=== PATIENT | male | born 1960 | race Caucasian/White ===

== ENCOUNTER 2019-03-09 12:55 | Inpatient (IN) | payer OTHER ==
[~2019-03-09] VITALS: Ht 195.6 cm; Wt 85.6 kg
[2019-03-09] MEDS ORDERED: OXYMETAZOLINE NASAL SPRAY 0.05%, 15ML NAS ONE (13:30)
[2019-03-09] MEDS ORDERED: TRANEXAMIC ACID 100 MG/ML, 10ML TP ONE (13:30)
[2019-03-09] MEDS ORDERED: PLEASE ENTER ALLERGIES MC SCH (14:00)
[2019-03-09 14:02] LABS: BASOPHILS # (AUTO) 0.02 x10^3/uL (0-0.1); BASOPHILS % (AUTO) 0 % (0-1); EOSINOPHILS # (AUTO) 0.01 x10^3/uL (0-0.4); EOSINOPHILS % (AUTO) 0 % (1-7); LYMPHOCYTES % (AUTO) 22 % (22-44); MD NO; MEAN CORPUSCULAR HEMOGLOBIN 31.7 pg (27.5-34.5); MEAN CORPUSCULAR HGB CONC 34.5 g/dL (33.2-36.2); MEAN PLATELET VOLUME 7.8 fL (7.4-10.4); MONOCYTES # (AUTO) 0.39 x10^3/uL (0.2-0.8); MONOCYTES % (AUTO) 5 % (2-9); NEUTROPHILS # (AUTO) 6.14 x10^3/uL (1.8-6.8); NEUTROPHILS % (AUTO) 73 % (42-75); PLATELET COUNT 275 x10^3/uL (130-400); RED BLOOD COUNT 3.51 x10^6/uL (4.38-5.82)
[2019-03-09 14:11] LABS: ALANINE AMINOTRANSFERASE 14 U/L (12-78); ALBUMIN 3.1 g/dL (3.4-5.0); ANION GAP 9 mmol/L (5-15); CHLORIDE 99 mmol/L (98-107)
[2019-03-09 14:16] LABS: ALKALINE PHOSPHATASE 70 U/L (45-117); BILIRUBIN,TOTAL 0.5 mg/dL (0.2-1.0); CREATININE 0.54 mg/dL (0.7-1.3); TOTAL PROTEIN 6.7 g/dL (6.4-8.2)
[2019-03-09] MEDS ORDERED: OXYMETAZOLINE NASAL SPRAY 0.05%,30ML ONE (14:53)
[2019-03-09] MEDS ORDERED: TRANEXAMIC ACID 100 MG/ML, 10ML ONE (14:54)
[2019-03-09] MEDS: QUETIAPINE 25MG TABLET PO SCH ×2 (15:00→21:23)
[2019-03-09] MEDS ORDERED: SODIUM CHLORIDE FLUSH 10ML SYR IVF PRN (15:00)
--- NOTE | 2019-03-09 15:15 | NUR ---
REPORT RECIEVED FROM TOMY BARTON. TO ADMINISTER MEDICATIONS PER HER INSTRUCTIONS. MD NOTIFIED MEDICATIONS AT BEDSIDE.
[2019-03-09] MEDS ORDERED: ONDANSETRON 2MG/ML, 2ML IVPush PRN (16:30)
[2019-03-09] MEDS ORDERED: TEMAZEPAM 15 MG CAPSULE PO PRN (16:30)
[2019-03-09] MEDS ORDERED: OXYcodone IR 5MG TABLET PO PRN (16:30)
[2019-03-09] MEDS ORDERED: ENOXAPARIN 40 MG/0.4 ML SQ SCH (16:30)
[2019-03-09] MEDS ORDERED: GABAPENTIN 300 MG CAPSULE PO PRN (16:30)
[2019-03-09] MEDS ORDERED: hydrALAzine 20 MG/ML, 1ML IVPush PRN (16:30)
[2019-03-09] MEDS: INSULIN LISPRO 100 UNITS/ML, PEN SQ-INSULIN SCH ×2 (16:30→21:00)
[2019-03-09] MEDS ORDERED: ACETAMINOPHEN 325 MG TABLET PO PRN (16:30)
[2019-03-09 18:45] VITALS: BP 135/87
[2019-03-09] MEDS ORDERED: MIRTAZAPINE 15 MG TABLET PO SCH (21:00)
[2019-03-09] MEDS ORDERED: QUETIAPINE 25MG TABLET PO SCH (21:00)
[2019-03-09] MEDS: MIRTAZAPINE 15 MG TABLET PO SCH (21:23)
[2019-03-10 01:32] VITALS: BP 110/71
[2019-03-10 02:26] LABS: MICROSCOPIC NOT IND
[2019-03-10 02:29] LABS: CULTURE INDICATED? NO
[2019-03-10 05:35] LABS: BASOPHILS # (AUTO) 0.03 x10^3/uL (0-0.1); BASOPHILS % (AUTO) 0 % (0-1); EOSINOPHILS # (AUTO) 0.11 x10^3/uL (0-0.4); EOSINOPHILS % (AUTO) 2 % (1-7); LYMPHOCYTES # (AUTO) 2.61 x10^3/uL (1-3.4); LYMPHOCYTES % (AUTO) 36 % (22-44); MD NO; MEAN CORPUSCULAR HEMOGLOBIN 30.9 pg (27.5-34.5); MEAN CORPUSCULAR HGB CONC 32.9 g/dL (33.2-36.2); MEAN CORPUSCULAR VOLUME 93.9 fL (81-97); MEAN PLATELET VOLUME 7.9 fL (7.4-10.4); MONOCYTES # (AUTO) 0.45 x10^3/uL (0.2-0.8); MONOCYTES % (AUTO) 6 % (2-9); NEUTROPHILS # (AUTO) 4.07 x10^3/uL (1.8-6.8); NEUTROPHILS % (AUTO) 56 % (42-75); PLATELET COUNT 243 x10^3/uL (130-400); RED BLOOD COUNT 3.21 x10^6/uL (4.38-5.82); RED CELL DISTRIBUTION WIDTH 15.8 % (9.4-14.8)
[2019-03-10 05:48] LABS: ALBUMIN 2.9 g/dL (3.4-5.0); ANION GAP 6 mmol/L (5-15); CALCIUM 8.7 mg/dL (8.5-10.1); CHLORIDE 101 mmol/L (98-107)
[2019-03-10 05:53] LABS: ALANINE AMINOTRANSFERASE 14 U/L (12-78); ALKALINE PHOSPHATASE 66 U/L (45-117); BILIRUBIN,TOTAL 0.5 mg/dL (0.2-1.0); CREATININE 0.39 mg/dL (0.7-1.3); TOTAL PROTEIN 6.1 g/dL (6.4-8.2)
[2019-03-10] MEDS: INSULIN LISPRO 100 UNITS/ML, PEN SQ-INSULIN SCH ×4 (07:00→21:00)
[2019-03-10 08:06] VITALS: BP 127/75
[2019-03-10] MEDS: QUETIAPINE 25MG TABLET PO SCH ×2 (08:10→21:55)
[2019-03-10] MEDS: GLIMEPIRIDE 1 MG TABLET PO SCH (08:10)
[2019-03-10] MEDS: METOPROLOL TARTRATE 25 MG TABLET PO SCH ×2 (09:50→18:02)
[2019-03-10] MEDS: POTASSIUM CHLORIDE 20 MEQ TAB.ER.PRT PO SCH ×2 (09:50→11:37)
[2019-03-10] MEDS ORDERED: RISP1TAB45 PO (13:55)
[2019-03-10] MEDS ORDERED: GABA100C PO (13:58)
[2019-03-10] MEDS ORDERED: GLIM4TAB2 PO (13:59)
[2019-03-10] MEDS ORDERED: METF500T27 PO (14:02)
[2019-03-10] MEDS ORDERED: PIOG15TA66 PO (14:03)
[2019-03-10] MEDS ORDERED: ROSU40TA PO (14:04)
[2019-03-10] MEDS ORDERED: SITA100T PO (14:05)
[2019-03-10] MEDS ORDERED: ASPI-515 PO (14:06)
[2019-03-10] MEDS ORDERED: VALP250C59 PO ×2 (14:08→14:26)
[2019-03-10] MEDS ORDERED: AMLO-150 PO (14:09)
[2019-03-10] MEDS ORDERED: GLIP5TAB22 PO (14:17)
[2019-03-10] MEDS ORDERED: OXYM15SP8 NAS (14:19)
[2019-03-10] MEDS ORDERED: MULT-108 PO (14:20)
[2019-03-10] MEDS ORDERED: LORA10TA62 PO (14:21)
[2019-03-10 14:39] VITALS: BP 117/69
[2019-03-10 19:44] VITALS: BP 115/64
[2019-03-10] MEDS: MIRTAZAPINE 15 MG TABLET PO SCH (21:54)
[2019-03-11 01:02] VITALS: BP 135/80
[2019-03-11] MEDS ORDERED: MAGNESIUM SULFATE PMX 4GM/100M 100 ML IV ONE (05:00)
[2019-03-11 05:10] LABS: ANION GAP 6 mmol/L (5-15); CALCIUM 8.6 mg/dL (8.5-10.1); CHLORIDE 99 mmol/L (98-107); CREATININE 0.35 mg/dL (0.7-1.3)
[2019-03-11] MEDS: METOPROLOL TARTRATE 25 MG TABLET PO SCH ×2 (05:33→17:42)
[2019-03-11] MEDS: INSULIN LISPRO 100 UNITS/ML, PEN SQ-INSULIN SCH ×4 (07:00→20:56)
[2019-03-11 07:01] VITALS: BP 136/74
[2019-03-11] MEDS: GLIMEPIRIDE 1 MG TABLET PO SCH (08:40)
[2019-03-11] MEDS: QUETIAPINE 25MG TABLET PO SCH ×2 (08:40→20:59)
[2019-03-11 13:33] VITALS: BP 105/58
[2019-03-11 20:25] VITALS: BP 146/80
[2019-03-11] MEDS: MIRTAZAPINE 15 MG TABLET PO SCH (20:59)
[2019-03-12 03:10] VITALS: BP 128/73
[2019-03-12] MEDS: METOPROLOL TARTRATE 25 MG TABLET PO SCH ×2 (06:01→18:32)
[2019-03-12 06:05] LABS: ANION GAP 5 mmol/L (5-15); CALCIUM 8.3 mg/dL (8.5-10.1); CHLORIDE 103 mmol/L (98-107)
[2019-03-12 06:06] LABS: CREATININE 0.55 mg/dL (0.7-1.3)
[2019-03-12] MEDS: INSULIN LISPRO 100 UNITS/ML, PEN SQ-INSULIN SCH ×4 (07:00→21:14)
[2019-03-12 08:08] VITALS: BP 120/81
[2019-03-12] MEDS: GLIMEPIRIDE 1 MG TABLET PO SCH (08:12)
[2019-03-12] MEDS: QUETIAPINE 25MG TABLET PO SCH ×2 (08:13→21:13)
[2019-03-12] MEDS ORDERED: MIRT-34 PO (09:09)
[2019-03-12] MEDS ORDERED: GLIM1TAB PO (09:09)
[2019-03-12] MEDS ORDERED: METO25TA35 PO (09:09)
[2019-03-12] MEDS ORDERED: QUET25TA7 PO (09:09)
[2019-03-12 14:45] VITALS: BP 120/75
[2019-03-12 19:15] VITALS: BP 124/72
[2019-03-12] MEDS: MIRTAZAPINE 15 MG TABLET PO SCH (21:13)
[2019-03-12 22:56] LABS: OCCULT BLOOD POSITIVE (NEGATIVE)
[2019-03-13 01:13] VITALS: BP 142/86
[2019-03-13 05:46] LABS: BASOPHILS # (AUTO) 0.03 x10^3/uL (0-0.1); BASOPHILS % (AUTO) 1 % (0-1); EOSINOPHILS # (AUTO) 0.17 x10^3/uL (0-0.4); EOSINOPHILS % (AUTO) 2 % (1-7); LYMPHOCYTES # (AUTO) 2.65 x10^3/uL (1-3.4); LYMPHOCYTES % (AUTO) 36 % (22-44); MD NO; MEAN CORPUSCULAR HEMOGLOBIN 31.1 pg (27.5-34.5); MEAN CORPUSCULAR HGB CONC 33.1 g/dL (33.2-36.2); MEAN CORPUSCULAR VOLUME 93.8 fL (81-97); MEAN PLATELET VOLUME 7.8 fL (7.4-10.4); MONOCYTES # (AUTO) 0.37 x10^3/uL (0.2-0.8); MONOCYTES % (AUTO) 5 % (2-9); NEUTROPHILS % (AUTO) 56 % (42-75); PLATELET COUNT 326 x10^3/uL (130-400); RED BLOOD COUNT 3.68 x10^6/uL (4.38-5.82); RED CELL DISTRIBUTION WIDTH 16.2 % (9.4-14.8)
[2019-03-13 05:54] VITALS: BP 133/85
[2019-03-13] MEDS: METOPROLOL TARTRATE 25 MG TABLET PO SCH ×2 (05:56→18:17)
[2019-03-13] MEDS: INSULIN LISPRO 100 UNITS/ML, PEN SQ-INSULIN SCH ×4 (07:00→20:40)
[2019-03-13 07:53] LABS: CLOSTRIDIUM DIFFICILE ANTIGEN NEGATIVE; CLOSTRIDIUM DIFFICILE TOXIN NEGATIVE (Negative)
[2019-03-13 08:00] VITALS: BP 128/80
[2019-03-13] MEDS: GLIMEPIRIDE 1 MG TABLET PO SCH (08:31)
[2019-03-13] MEDS: QUETIAPINE 25MG TABLET PO SCH ×2 (08:32→20:39)
[2019-03-13 15:26] VITALS: BP 118/76
[2019-03-13 19:17] VITALS: BP 129/78
[2019-03-13] MEDS: MIRTAZAPINE 15 MG TABLET PO SCH (20:39)
[2019-03-14 02:50] VITALS: BP 131/87
[2019-03-14 05:20] VITALS: BP 116/77
[2019-03-14] MEDS: METOPROLOL TARTRATE 25 MG TABLET PO SCH (05:23)
[2019-03-14] MEDS: INSULIN LISPRO 100 UNITS/ML, PEN SQ-INSULIN SCH ×4 (07:00→20:33)
[2019-03-14] MEDS: GLIMEPIRIDE 1 MG TABLET PO SCH (07:41)
[2019-03-14 07:57] VITALS: BP 106/67
[2019-03-14] MEDS: QUETIAPINE 25MG TABLET PO SCH ×2 (09:00→20:33)
[2019-03-14] MEDS ORDERED: SODIUM CHLORIDE 0.9% 1,000ML IVBOLUS ONE (12:30)
[2019-03-14 12:45] VITALS: BP 123/75
[2019-03-14 15:30] VITALS: BP 115/72
[2019-03-14] MEDS: SODIUM CHLORIDE 0.9% 1,000 ML IV SCH (16:04)
[2019-03-14] MEDS ORDERED: MAGNESIUM SULFATE 4 GM in SODIUM CHLORIDE 0.9% 100 ML IV ONE (19:00)
[2019-03-14] MEDS ORDERED: POTASSIUM PHOSPHATE 44 MEQ in SODIUM CHLORIDE 0.9% 500 ML IV ONE (19:00)
[2019-03-14] MEDS ORDERED: MAGNESIUM SULFATE PMX 4GM/100M 100 ML IV ONE (19:01)
[2019-03-14 19:32] VITALS: BP 115/66
[2019-03-14] MEDS: MIRTAZAPINE 15 MG TABLET PO SCH (20:32)
[2019-03-15 00:10] LABS: MICROSCOPIC NOT IND
[2019-03-15 00:11] VITALS: BP 131/80
[2019-03-15 00:18] LABS: CULTURE INDICATED? NO
[2019-03-15] MEDS: SODIUM CHLORIDE 0.9% 1,000 ML IV SCH ×2 (04:53→13:48)
[2019-03-15 05:57] LABS: BASOPHILS # (AUTO) 0.01 x10^3/uL (0-0.1); BASOPHILS % (AUTO) 0 % (0-1); EOSINOPHILS % (AUTO) 0 % (1-7); LYMPHOCYTES # (AUTO) 0.86 x10^3/uL (1-3.4); LYMPHOCYTES % (AUTO) 14 % (22-44); MD NO; MEAN CORPUSCULAR HEMOGLOBIN 30.5 pg (27.5-34.5); MEAN CORPUSCULAR VOLUME 92.6 fL (81-97); MONOCYTES # (AUTO) 0.21 x10^3/uL (0.2-0.8); MONOCYTES % (AUTO) 4 % (2-9); NEUTROPHILS # (AUTO) 5.02 x10^3/uL (1.8-6.8); NEUTROPHILS % (AUTO) 82 % (42-75); PLATELET COUNT 314 x10^3/uL (130-400); RED CELL DISTRIBUTION WIDTH 16.3 % (9.4-14.8)
[2019-03-15 06:05] LABS: ANION GAP 8 mmol/L (5-15); CALCIUM 8.4 mg/dL (8.5-10.1); CHLORIDE 100 mmol/L (98-107); CREATININE 0.42 mg/dL (0.7-1.3)
[2019-03-15] MEDS: INSULIN LISPRO 100 UNITS/ML, PEN SQ-INSULIN SCH ×4 (07:00→21:10)
[2019-03-15 07:36] VITALS: BP 135/78
[2019-03-15] MEDS: GLIMEPIRIDE 1 MG TABLET PO SCH (08:12)
[2019-03-15] MEDS: QUETIAPINE 25MG TABLET PO SCH ×2 (08:13→20:59)
[2019-03-15 13:42] VITALS: BP 132/74
[2019-03-15] MEDS ORDERED: VANCOMYCIN PMX 1GM/200ML 200 ML IV ONE (15:30)
[2019-03-15] MEDS ORDERED: VANCOMYCIN PER PHARMACY MC PRN (15:30)
[2019-03-15 15:58] LABS: HCT (SEDRATE) 31.8 % (39.2-51.8)
[2019-03-15] MEDS ORDERED: PHARMACOKINETIC MONITORING MC PRN (16:00)
[2019-03-15] MEDS: VANCOMYCIN 1,700 MG in SODIUM CHLORIDE 0.9% 250 ML IV SCH (16:17)
[2019-03-15 20:07] VITALS: BP 139/72
[2019-03-15] MEDS: MIRTAZAPINE 15 MG TABLET PO SCH (20:59)
[2019-03-16 00:26] VITALS: BP 153/92
[2019-03-16] MEDS: SODIUM CHLORIDE 0.9% 1,000 ML IV SCH ×3 (02:33→18:01)
[2019-03-16] MEDS: VANCOMYCIN 1,700 MG in SODIUM CHLORIDE 0.9% 250 ML IV SCH ×3 (04:37→17:14)
[2019-03-16 06:15] LABS: ANION GAP 6 mmol/L (5-15); CALCIUM 8.2 mg/dL (8.5-10.1); CHLORIDE 99 mmol/L (98-107); CREATININE 0.38 mg/dL (0.7-1.3)
[2019-03-16] MEDS: INSULIN LISPRO 100 UNITS/ML, PEN SQ-INSULIN SCH ×4 (07:00→21:51)
[2019-03-16 07:15] VITALS: BP 152/87
[2019-03-16] MEDS: QUETIAPINE 25MG TABLET PO SCH ×2 (08:12→19:45)
[2019-03-16] MEDS: GLIMEPIRIDE 1 MG TABLET PO SCH (08:12)
[2019-03-16 12:12] VITALS: BP 135/81
[2019-03-16 16:01] LABS: ANA SCREEN NEGATIVE (Negative)
[2019-03-16] MEDS ORDERED: POTASSIUM PHOSPHATE 44 MEQ in SODIUM CHLORIDE 0.9% 500 ML IV ONE (17:30)
[2019-03-16] MEDS ORDERED: MAGNESIUM SULFATE 4 GM in SODIUM CHLORIDE 0.9% 100 ML IV ONE (17:30)
[2019-03-16 18:50] VITALS: BP 128/81
[2019-03-16] MEDS: MIRTAZAPINE 15 MG TABLET PO SCH (19:44)
[2019-03-17 00:10] VITALS: BP 149/79
[2019-03-17] MEDS: VANCOMYCIN 1,700 MG in SODIUM CHLORIDE 0.9% 250 ML IV SCH ×2 (05:14→17:27)
[2019-03-17 06:13] LABS: ANION GAP 6 mmol/L (5-15); CALCIUM 8.2 mg/dL (8.5-10.1); CHLORIDE 100 mmol/L (98-107); CREATININE 0.29 mg/dL (0.7-1.3)
[2019-03-17] MEDS: INSULIN LISPRO 100 UNITS/ML, PEN SQ-INSULIN SCH ×4 (07:00→21:32)
[2019-03-17 07:17] VITALS: BP 143/83
[2019-03-17] MEDS: GLIMEPIRIDE 1 MG TABLET PO SCH (08:18)
[2019-03-17] MEDS: QUETIAPINE 25MG TABLET PO SCH ×2 (08:18→21:31)
[2019-03-17] MEDS: SODIUM CHLORIDE 0.9% 1,000 ML IV SCH ×2 (09:53→17:22)
[2019-03-17 13:40] VITALS: BP 127/81
[2019-03-17] MEDS: MIRTAZAPINE 15 MG TABLET PO SCH (21:31)
[2019-03-17 22:03] VITALS: BP 168/72
[2019-03-18 01:27] VITALS: BP 127/78
[2019-03-18] MEDS: SODIUM CHLORIDE 0.9% 1,000 ML IV SCH ×2 (02:00→10:00)
[2019-03-18] MEDS: VANCOMYCIN 1,700 MG in SODIUM CHLORIDE 0.9% 250 ML IV SCH (02:56)
[2019-03-18 06:16] LABS: ANION GAP 5 mmol/L (5-15); CALCIUM 8.7 mg/dL (8.5-10.1); CHLORIDE 100 mmol/L (98-107)
[2019-03-18] MEDS: INSULIN LISPRO 100 UNITS/ML, PEN SQ-INSULIN SCH ×4 (07:00→21:42)
[2019-03-18 07:27] VITALS: BP 127/68
[2019-03-18] MEDS: QUETIAPINE 25MG TABLET PO SCH ×2 (08:36→21:41)
[2019-03-18] MEDS: GLIMEPIRIDE 1 MG TABLET PO SCH (08:36)
[2019-03-18 13:47] VITALS: BP 127/81
[2019-03-18] MEDS: VANCOMYCIN 1,800 MG in SODIUM CHLORIDE 0.9% 250 ML IV SCH (15:01)
[2019-03-18] MEDS: MIRTAZAPINE 15 MG TABLET PO SCH (21:41)
[2019-03-18 21:46] VITALS: BP 163/88
[2019-03-19 00:43] VITALS: BP 169/87
[2019-03-19] MEDS: VANCOMYCIN 1,800 MG in SODIUM CHLORIDE 0.9% 250 ML IV SCH ×2 (03:07→15:14)
[2019-03-19 05:35] LABS: BASOPHILS # (AUTO) 0.03 x10^3/uL (0-0.1); BASOPHILS % (AUTO) 1 % (0-1); EOSINOPHILS # (AUTO) 0.07 x10^3/uL (0-0.4); EOSINOPHILS % (AUTO) 1 % (1-7); LYMPHOCYTES # (AUTO) 2.24 x10^3/uL (1-3.4); LYMPHOCYTES % (AUTO) 39 % (22-44); MD NO; MEAN CORPUSCULAR HEMOGLOBIN 30.1 pg (27.5-34.5); MEAN CORPUSCULAR HGB CONC 33.4 g/dL (33.2-36.2); MEAN CORPUSCULAR VOLUME 90.1 fL (81-97); MEAN PLATELET VOLUME 6.6 fL (7.4-10.4); MONOCYTES # (AUTO) 0.35 x10^3/uL (0.2-0.8); MONOCYTES % (AUTO) 6 % (2-9); NEUTROPHILS # (AUTO) 3.02 x10^3/uL (1.8-6.8); NEUTROPHILS % (AUTO) 53 % (42-75); PLATELET COUNT 298 x10^3/uL (130-400); RED BLOOD COUNT 3.54 x10^6/uL (4.38-5.82); RED CELL DISTRIBUTION WIDTH 16.1 % (9.4-14.8)
[2019-03-19 05:51] LABS: ALBUMIN 2.7 g/dL (3.4-5.0); ANION GAP 6 mmol/L (5-15); CALCIUM 8.8 mg/dL (8.5-10.1); CHLORIDE 101 mmol/L (98-107)
[2019-03-19 05:55] LABS: ALANINE AMINOTRANSFERASE 30 U/L (12-78); ALKALINE PHOSPHATASE 103 U/L (45-117); BILIRUBIN,TOTAL 0.5 mg/dL (0.2-1.0); CREATININE 0.34 mg/dL (0.7-1.3)
[2019-03-19] MEDS: INSULIN LISPRO 100 UNITS/ML, PEN SQ-INSULIN SCH ×4 (07:00→20:26)
[2019-03-19 09:04] VITALS: BP 153/85
[2019-03-19] MEDS: QUETIAPINE 25MG TABLET PO SCH ×2 (10:08→20:26)
[2019-03-19] MEDS: GLIMEPIRIDE 1 MG TABLET PO SCH (10:08)
[2019-03-19 15:10] VITALS: BP 143/74
[2019-03-19 19:46] VITALS: BP 150/84
[2019-03-19] MEDS: MIRTAZAPINE 15 MG TABLET PO SCH (20:26)
[2019-03-20 01:04] VITALS: BP 160/76
[2019-03-20] MEDS: VANCOMYCIN 1,800 MG in SODIUM CHLORIDE 0.9% 250 ML IV SCH ×2 (02:57→17:11)
[2019-03-20] MEDS: INSULIN LISPRO 100 UNITS/ML, PEN SQ-INSULIN SCH ×4 (07:00→20:04)
[2019-03-20 08:39] VITALS: BP 152/82
[2019-03-20] MEDS ORDERED: VANC1VIA3 IV (11:10)
[2019-03-20] MEDS: GLIMEPIRIDE 1 MG TABLET PO SCH (11:16)
[2019-03-20] MEDS: QUETIAPINE 25MG TABLET PO SCH ×2 (11:17→20:57)
[2019-03-20 13:55] VITALS: BP 151/78
[2019-03-20 19:53] VITALS: BP 142/74
[2019-03-20] MEDS: MIRTAZAPINE 15 MG TABLET PO SCH (20:56)
[2019-03-21 01:38] VITALS: BP 140/86
[2019-03-21] MEDS: VANCOMYCIN 1,800 MG in SODIUM CHLORIDE 0.9% 250 ML IV SCH (04:48)
[2019-03-21] MEDS: INSULIN LISPRO 100 UNITS/ML, PEN SQ-INSULIN SCH ×2 (07:00→12:35)
[2019-03-21 08:00] VITALS: BP 136/80
[2019-03-21] MEDS: GLIMEPIRIDE 1 MG TABLET PO SCH (08:20)
[2019-03-21] MEDS: QUETIAPINE 25MG TABLET PO SCH (08:20)
[2019-03-21] MEDS ORDERED: VANC1VIA3 IV (11:02)
[2019-03-21 13:30] VITALS: BP 124/76
== END 2019-03-21 16:00 | DRG 150 ==
LOC: ED 15:14 → SUATTDRO 15:30 → EDIP 16:08 → 3N 16:09
PROVIDERS: ADMIT Internal Medicine; ATTEND Internal Medicine
PROC: 02HV33Z Insertion of Infusion Device into Superior Vena Cava, Percutaneous Approach (ICD-10-PCS; principal; 2019-03-20)
PROC: B548ZZA Ultrasonography of Superior Vena Cava, Guidance (ICD-10-PCS; 2019-03-20)
PROC: B5181ZA Fluoroscopy of Superior Vena Cava using Low Osmolar Contrast, Guidance (ICD-10-PCS; 2019-03-20)
DX: R04.0 Epistaxis (principal); A41.51 Sepsis due to Escherichia coli [E. coli]; A41.02 Sepsis due to Methicillin resistant Staphylococcus aureus; R62.7 Adult failure to thrive; F25.1 Schizoaffective disorder, depressive type; E83.42 Hypomagnesemia; E87.6 Hypokalemia; G40.909 Epilepsy, unspecified, not intractable, without status epilepticus; E11.42 Type 2 diabetes mellitus with diabetic polyneuropathy; I11.0 Hypertensive heart disease with heart failure; M51.35 Other intervertebral disc degeneration, thoracolumbar region; I50.9 Heart failure, unspecified; Y92.009 Unspecified place in unspecified non-institutional (private) residence as the place of occurrence of the external cause; Y93.89 Activity, other specified; Y99.8 Other external cause status; Z80.0 Family history of malignant neoplasm of digestive organs; Z80.1 Family history of malignant neoplasm of trachea, bronchus and lung; Z82.49 Family history of ischemic heart disease and other diseases of the circulatory system; Z86.711 Personal history of pulmonary embolism; Z68.22 Body mass index [BMI] 22.0-22.9, adult
CPT/HCPCS: 36415; 36573; 71045; 72146; 72148; 80048; 80053; 80202; 81003; 82272; 82533; 82962; 83036; 83605; 83735; 83880; 84100; 84443; 85025; 85651; 86038; 86140; 86430; 86850; 86900; 87040; 87077; 87147; 87186; 87324; 93005; 99285; G0378; J3370; J3475; C1751; J1815; J7030; J7040; J7050